=== PATIENT | female | born 1970 | race Caucasian/White ===

== ENCOUNTER → 2016-11-20 | Outpatient (CLI) | payer BC ==
[~2016-11-20] MED LIST: ATORVASTATIN CA20 M1 PO; BACTROBAN OINT22 GM PO; LISINOPRIL10 M1 PO; MOTRIN800 MG PO; XARE15TA PO; XARE20MG PO
== END | disposition home or self-care (01) ==
LOC: RESCLI 02:02
DX: Z12.31 Encounter for screening mammogram for malignant neoplasm of breast (principal); I10 Essential (primary) hypertension; E78.2 Mixed hyperlipidemia; Z76.89 Persons encountering health services in other specified circumstances

== ENCOUNTER → 2017-07-24 | Outpatient (CLI) | payer BC | END | disposition home or self-care (01) | LOC: LAB 13:11 → RESCLI 13:11 | DX: N91.2 Amenorrhea, unspecified (principal) ==

== ENCOUNTER 2018-12-09 19:38 | Emergency (ER) | payer BC ==
[~2018-12-09] VITALS: Wt 77.1 kg
[2018-12-09] MEDS ORDERED: CYCLOBENZAPRINE10 MG PO (22:19)
[2018-12-09] MEDS ORDERED: MEDROL DOSEPAK4 MG PO (22:19)
== END 2018-12-09 22:45 | disposition home or self-care (01) ==
LOC: ED 19:38
DX: M51.37 Other intervertebral disc degeneration, lumbosacral region (principal); Z79.899 Other long term (current) drug therapy; X58.XXXA Exposure to other specified factors, initial encounter; Y93.89 Activity, other specified; Y92.89 Other specified places as the place of occurrence of the external cause; Y99.8 Other external cause status

== ENCOUNTER 2019-02-02 02:23 | Emergency (ER) | payer BC ==
[~2019-02-02] VITALS: Ht 162.5 cm; Wt 77.1 kg
[~2019-02-02 02:23] MED LIST changes: +CYCLOBENZAPRINE10 MG PO; +MEDROL DOSEPAK4 MG PO
[2019-02-02 04:00] LABS: BASO # 0.1 10*3/uL (0.0-0.1); BASO % 0.6 % (0.0-1.0); EOS # 0.1 10*3/uL (0.0-0.4); EOS % 1.5 % (1.0-4.0); HEMOGLOBIN 13.1 g/dl (12.0-16.0); LYMPH # 2.4 10*3/uL (1.3-4.4); LYMPH % 26.9 % (27.0-41.0); MEAN CELL VOLUME 95.4 fl (81.0-99.0); MEAN CORPUSCULAR HGB CONC 33.6 g/dl (33.0-37.0); MEAN PLATELET VOLUME 9.6 fl (9.6-12.3); MONO # 0.7 10*3/uL (0.1-1.0); MONO % 7.8 % (3.0-9.0); NEUT # 5.7 10*3/uL (2.3-7.9); NEUT % 62.8 % (47.0-73.0); PLATELET COUNT AUTOMATED 328 10*3/uL (130-400); RED BLOOD COUNT 4.09 10*6/uL (4.10-5.10); RED CELL DISTRI WIDTH 12.5 % (0-14.5); WHITE BLOOD COUNT 9.1 10*3/uL (4.8-10.8)
[2019-02-02 04:12] LABS: INTERNATIONAL NORM RATIO 0.9 (2.0-3.5)
[2019-02-02 04:18] LABS: ALBUMIN 3.7 gm/dl (3.1-4.5); ALKALINE PHOSPHATASE 51 U/L (45-117); BUN 18 mg/dl (7-24); CHLORIDE 104 mmol/L (98-107); CREATININE 0.86 mg/dL (0.55-1.02); POTASSIUM 3.8 mmol/L (3.5-5.1); SGOT/AST 18 IU/L (3-35); SGPT/ALT 24 U/L (12-78); SODIUM 137 mmol/L (136-145); TOTAL PROTEIN 7.5 gm/dL (6.4-8.2)
[2019-02-02 04:20] LABS: TROPONIN I < 0.015 ng/ml (<0.045)
[2019-02-02] MEDS ORDERED: PROTONIX40 MG PO (05:47)
== END 2019-02-02 06:16 | disposition home or self-care (01) ==
LOC: ED 02:23
PROVIDERS: Emergency Medicine Emergency Medical Services
DX: T18.128A Food in esophagus causing other injury, initial encounter (principal); Z79.899 Other long term (current) drug therapy; Z90.49 Acquired absence of other specified parts of digestive tract; X58.XXXA Exposure to other specified factors, initial encounter; Y93.89 Activity, other specified; Y92.89 Other specified places as the place of occurrence of the external cause; Y99.8 Other external cause status

== ENCOUNTER 2020-10-28 21:53 | Inpatient (IN) | payer BC ==
[~2020-10-28] VITALS: Ht 165.1 cm; Wt 80.4 kg
[~2020-10-28 21:53] MED LIST changes: +PROTONIX40 MG PO
[2020-10-28 22:15] VITALS: BP 162/105
[2020-10-28 22:19] LABS: BASO # 0.1 10*3/uL (0.0-0.1); BASO % 0.6 % (0.0-1.0); EOS # 0.1 10*3/uL (0.0-0.4); EOS % 1.4 % (1.0-4.0); HEMATOCRIT 41.4 % (37.0-47.0); LYMPH # 2.8 10*3/uL (1.3-4.4); LYMPH % 35.2 % (27.0-41.0); MEAN CELL VOLUME 92.6 fl (81.0-99.0); MEAN CORPUSCULAR HGB 31.5 pg (27.0-31.0); MEAN CORPUSCULAR HGB CONC 34.1 g/dl (33.0-37.0); MEAN PLATELET VOLUME 11.1 fl (9.6-12.3); MONO # 0.7 10*3/uL (0.1-1.0); MONO % 8.6 % (3.0-9.0); NEUT # 4.3 10*3/uL (2.3-7.9); NEUT % 53.9 % (47.0-73.0); PLATELET COUNT AUTOMATED 240 10*3/uL (130-400); RED BLOOD COUNT 4.47 10*6/uL (4.10-5.10); RED CELL DISTRI WIDTH 12.3 % (0-14.5)
[2020-10-28 23:04] LABS: ALBUMIN 3.4 gm/dl (3.1-4.5); ALKALINE PHOSPHATASE 58 U/L (45-117); BUN 19 mg/dl (7-24); CHLORIDE 109 mmol/L (98-107); CREATININE 0.97 mg/dL (0.55-1.02); POTASSIUM 3.7 mmol/L (3.5-5.1); SGOT/AST 15 IU/L (3-35); SGPT/ALT 24 U/L (12-78); SODIUM 138 mmol/L (136-145); TOTAL PROTEIN 7.7 gm/dL (6.4-8.2)
[2020-10-28 23:05] LABS: TROPONIN I < 0.015 ng/ml (<0.045)
[2020-10-28 23:53] VITALS: BP 142/77
[2020-10-29 01:20] VITALS: BP 120/72
[2020-10-29 02:05] VITALS: BP 135/76
[2020-10-29] MEDS ORDERED: CELECOXIB200 M1 PO (02:19)
[2020-10-29] MEDS ORDERED: ASPIRIN CHEWABL81 MG PO (02:19)
[2020-10-29 08:00] VITALS: BP 132/72
[2020-10-29] MEDS ORDERED: MECLIZINE HCL25 M2 PO (11:04)
== END 2020-10-29 13:13 | disposition home or self-care (01) | DRG 206 ==
LOC: ED 21:53 → 5E 10-29 01:19 → EDHOLD 10-29 01:19 → 5E 10-29 01:50
PROVIDERS: Emergency Medicine; ADMIT Internal Medicine; ATTEND Internal Medicine
DX: M94.0 Chondrocostal junction syndrome [Tietze] (principal); E86.0 Dehydration; M51.37 Other intervertebral disc degeneration, lumbosacral region; E78.2 Mixed hyperlipidemia; R73.9 Hyperglycemia, unspecified; I10 Essential (primary) hypertension; R07.89 Other chest pain; R11.0 Nausea; E87.8 Other disorders of electrolyte and fluid balance, not elsewhere classified; E78.00 Pure hypercholesterolemia, unspecified; Z86.718 Personal history of other venous thrombosis and embolism; Z90.49 Acquired absence of other specified parts of digestive tract; Z83.3 Family history of diabetes mellitus; Z79.899 Other long term (current) drug therapy; Z79.82 Long term (current) use of aspirin; Z83.438 Family history of other disorder of lipoprotein metabolism and other lipidemia

== ENCOUNTER 2021-05-16 23:28 | Emergency (ER) | payer BC ==
[~2021-05-16] VITALS: Ht 165.1 cm; Wt 73.5 kg
[~2021-05-16 23:28] MED LIST changes: +ASPIRIN CHEWABL81 MG PO; +CELECOXIB200 M1 PO; +MECLIZINE HCL25 M2 PO
== END 2021-05-17 01:49 | disposition home or self-care (01) ==
LOC: ED 23:28
DX: F45.8 Other somatoform disorders (principal)

== ENCOUNTER 2021-07-10 15:21 | Emergency (ER) | payer BC ==
[2021-07-10 16:59] LABS: BILIRUBIN Negative (Negative); BLOOD 2+ (Negative); CLARITY Clear (Clear); COLOR Yellow (Yellow); GLUCOSE Negative (Negative); KETONE Negative (Negative); LEUKO ESTERASE Negative (Negative); NITRITE Negative (Negative); SPECIFIC GRAVITY 1.015 (1.001-1.030); UROBILINOGEN 0.2 E.U./dl (0.0-1.0)
[2021-07-10 17:17] LABS: BACTERIA 1+; MUCOUS 1+; WBC 0-2 wbc/hpf (0-5)
[2021-07-10] MEDS ORDERED: NAPROXEN250 MG PO (18:21)
[2021-07-10] MEDS ORDERED: CYCLOBENZAPRINE10 MG PO (18:21)
== END 2021-07-10 18:30 | disposition home or self-care (01) ==
LOC: ED 15:21
PROVIDERS: Nurse Practitioner Family
DX: S30.811A Abrasion of abdominal wall, initial encounter (principal); S09.90XA Unspecified injury of head, initial encounter; Z79.899 Other long term (current) drug therapy; Z79.82 Long term (current) use of aspirin; Z90.49 Acquired absence of other specified parts of digestive tract; V86.69XA Passenger of other special all-terrain or other off-road motor vehicle injured in nontraffic accident, initial encounter; Y93.89 Activity, other specified; Y92.89 Other specified places as the place of occurrence of the external cause; Y99.8 Other external cause status

== ENCOUNTER 2021-09-06 01:18 | Observation (INO) | payer BC ==
[~2021-09-06] VITALS: Ht 162.5 cm; Wt 80.3 kg
[2021-09-06] VITALS (7 sets, daily range): BP systolic 102–166; BP diastolic 47–117
[~2021-09-06 01:18] MED LIST changes: +NAPROXEN250 MG PO
[2021-09-06 01:47] LABS: BASO % 0.4 % (0.0-1.0); EOS # 0.1 10*3/uL (0.0-0.4); EOS % 1.8 % (1.0-4.0); LYMPH # 3.3 10*3/uL (1.3-4.4); LYMPH % 44.9 % (27.0-41.0); MEAN CORPUSCULAR HGB 32.2 pg (27.0-31.0); MEAN PLATELET VOLUME 9.4 fl (9.6-12.3); MONO # 0.6 10*3/uL (0.1-1.0); MONO % 8.3 % (3.0-9.0); NEUT # 3.3 10*3/uL (2.3-7.9); NEUT % 44.3 % (47.0-73.0); PLATELET COUNT AUTOMATED 246 10*3/uL (130-400); RED BLOOD COUNT 4.35 10*6/uL (4.10-5.10); RED CELL DISTRI WIDTH 11.6 % (0-14.5); WHITE BLOOD COUNT 7.4 10*3/uL (4.8-10.8)
[2021-09-06 01:59] LABS: ACT PARTIAL THROMBO TIME 24.6 SECONDS (20.0-32.1)
[2021-09-06 02:03] LABS: ALKALINE PHOSPHATASE 51 U/L (45-117); BUN 15 mg/dl (7-24); CHLORIDE 107 mmol/L (98-107); CREATININE 0.82 mg/dL (0.55-1.02); POTASSIUM 3.7 mmol/L (3.5-5.1); SGOT/AST 25 IU/L (3-35); SGPT/ALT 35 U/L (12-78); SODIUM 139 mmol/L (136-145); TOTAL PROTEIN 7.4 gm/dL (6.4-8.2)
[2021-09-06 03:42] LABS: BASO % 0.3 % (0.0-1.0); EOS % 0.6 % (1.0-4.0); HEMATOCRIT 38.7 % (37.0-47.0); LYMPH # 1.6 10*3/uL (1.3-4.4); LYMPH % 22.2 % (27.0-41.0); MEAN CELL VOLUME 92.1 fl (81.0-99.0); MEAN CORPUSCULAR HGB 31.9 pg (27.0-31.0); MEAN CORPUSCULAR HGB CONC 34.6 g/dl (33.0-37.0); MEAN PLATELET VOLUME 9.6 fl (9.6-12.3); MONO # 0.5 10*3/uL (0.1-1.0); MONO % 6.5 % (3.0-9.0); NEUT # 4.9 10*3/uL (2.3-7.9); NEUT % 70.1 % (47.0-73.0); PLATELET COUNT AUTOMATED 228 10*3/uL (130-400); RED CELL DISTRI WIDTH 11.6 % (0-14.5)
[2021-09-06 03:58] LABS: ALKALINE PHOSPHATASE 49 U/L (45-117); BUN 16 mg/dl (7-24); CHLORIDE 109 mmol/L (98-107); CHOLESTEROL 218 mg/dL (<200); CREATININE 0.79 mg/dL (0.55-1.02); POTASSIUM 4.2 mmol/L (3.5-5.1); SGOT/AST 22 IU/L (3-35); SGPT/ALT 33 U/L (12-78); SODIUM 138 mmol/L (136-145); TOTAL PROTEIN 7.5 gm/dL (6.4-8.2); TRIGLYCERIDES 404 mg/dl (<150)
[2021-09-06 04:03] LABS: ACT PARTIAL THROMBO TIME 25.5 SECONDS (20.0-32.1)
[2021-09-06] MEDS ORDERED: LISINOPRIL10 M1 PO (17:05)
[2021-09-06] MEDS ORDERED: VITAMIN D3125 MC1 PO (17:05)
[2021-09-06] MEDS ORDERED: ATORVASTATIN CA40 M1 PO (17:05)
[2021-09-06] MEDS ORDERED: LOPRESSOR25 MG PO (17:05)
== END 2021-09-06 17:29 | disposition home or self-care (01) ==
LOC: ED 01:18 → EDHOLD 02:50 → 4E 02:50
PROVIDERS: Emergency Medicine; Internal Medicine; ADMIT Internal Medicine; ATTEND Internal Medicine
DX: G45.9 Transient cerebral ischemic attack, unspecified (principal); R11.0 Nausea; R07.89 Other chest pain; R29.898 Other symptoms and signs involving the musculoskeletal system; R00.0 Tachycardia, unspecified; I10 Essential (primary) hypertension; E87.8 Other disorders of electrolyte and fluid balance, not elsewhere classified; E78.1 Pure hyperglyceridemia; E78.2 Mixed hyperlipidemia; R42 Dizziness and giddiness; R73.9 Hyperglycemia, unspecified; Z78.9 Other specified health status; Z79.899 Other long term (current) drug therapy; Z79.82 Long term (current) use of aspirin

== ENCOUNTER 2021-12-22 01:43 | Emergency (ER) | payer BC ==
[~2021-12-22] VITALS: Ht 162.5 cm; Wt 72.6 kg
[~2021-12-22 01:43] MED LIST changes: +ATORVASTATIN CA40 M1 PO; +LOPRESSOR25 MG PO; +VITAMIN D3125 MC1 PO
[2021-12-22 03:28] LABS: BASO % 0.5 % (0.0-1.0); EOS # 0.1 10*3/uL (0.0-0.4); EOS % 1.1 % (1.0-4.0); LYMPH # 1.8 10*3/uL (1.3-4.4); LYMPH % 22.9 % (27.0-41.0); MEAN CELL VOLUME 91.1 fl (81.0-99.0); MEAN CORPUSCULAR HGB CONC 35.1 g/dl (33.0-37.0); MONO # 0.5 10*3/uL (0.1-1.0); MONO % 6.2 % (3.0-9.0); NEUT # 5.4 10*3/uL (2.3-7.9); NEUT % 68.9 % (47.0-73.0); PLATELET COUNT AUTOMATED 257 10*3/uL (130-400); RED BLOOD COUNT 4.06 10*6/uL (4.10-5.10); RED CELL DISTRI WIDTH 12.6 % (0-14.5); WHITE BLOOD COUNT 7.9 10*3/uL (4.8-10.8)
[2021-12-22 03:55] LABS: ALKALINE PHOSPHATASE 53 U/L (45-117); BUN 15 mg/dl (7-24); CHLORIDE 107 mmol/L (98-107); CREATININE 0.77 mg/dL (0.55-1.02); POTASSIUM 4.5 mmol/L (3.5-5.1); SGOT/AST 50 IU/L (3-35); SGPT/ALT 42 U/L (12-78); SODIUM 134 mmol/L (136-145); TOTAL PROTEIN 7.8 gm/dL (6.4-8.2)
[2021-12-22 04:10] LABS: BILIRUBIN Negative (Negative); BLOOD 2+ (Negative); CLARITY Clear (Clear); COLOR Yellow (Yellow); GLUCOSE Negative (Negative); KETONE Negative (Negative); LEUKO ESTERASE Negative (Negative); NITRITE Negative (Negative); UROBILINOGEN 0.2 E.U./dl (0.0-1.0)
[2021-12-22 04:16] LABS: EPITHELIAL CELLS 16-20; WBC 0-2 wbc/hpf (0-5); YEAST TRACE
[2021-12-22] MEDS ORDERED: PROMETHAZINE12.5 M5 PO (05:33)
== END 2021-12-22 05:37 | disposition home or self-care (01) ==
LOC: ED 01:43
PROVIDERS: Emergency Medicine
DX: R11.10 Vomiting, unspecified (principal); K65.4 Sclerosing mesenteritis; I10 Essential (primary) hypertension; E78.2 Mixed hyperlipidemia; Z79.82 Long term (current) use of aspirin; Z86.73 Personal history of transient ischemic attack (TIA), and cerebral infarction without residual deficits; Z90.49 Acquired absence of other specified parts of digestive tract

== ENCOUNTER 2022-03-09 15:03 | Emergency (ER) | payer BC ==
[~2022-03-09] VITALS: Ht 162.5 cm; Wt 74.8 kg
[~2022-03-09 15:03] MED LIST changes: +PROMETHAZINE12.5 M5 PO
[2022-03-09] MEDS ORDERED: PERCOCET 5-3251 EACH PO (16:26)
[2022-03-09] MEDS ORDERED: AMOX-CLAV 875-1 EACH PO (16:26)
[2022-03-09] MEDS ORDERED: ANTIBIOTIC28.4 GM T (16:26)
== END 2022-03-09 16:54 | disposition home or self-care (01) ==
LOC: ED 15:03
DX: S61.452A Open bite of left hand, initial encounter (principal); S61.552A Open bite of left wrist, initial encounter; Z79.82 Long term (current) use of aspirin; Z90.49 Acquired absence of other specified parts of digestive tract; W54.0XXA Bitten by dog, initial encounter; Y93.89 Activity, other specified; Y92.89 Other specified places as the place of occurrence of the external cause; Y99.8 Other external cause status

== ENCOUNTER 2022-03-11 19:54 | Emergency (ER) | payer BC ==
[~2022-03-11] VITALS: Ht 162.6 cm; Wt 74.4 kg
[~2022-03-11 19:54] MED LIST changes: +AMOX-CLAV 875-1 EACH PO; +ANTIBIOTIC28.4 GM T; +PERCOCET 5-3251 EACH PO
[2022-03-11 20:44] LABS: BASO % 0.4 % (0.0-1.0); EOS # 0.1 10*3/uL (0.0-0.4); EOS % 1.4 % (1.0-4.0); HEMATOCRIT 40.8 % (37.0-47.0); LYMPH # 2.4 10*3/uL (1.3-4.4); LYMPH % 30.6 % (27.0-41.0); MEAN CELL VOLUME 94.4 fl (81.0-99.0); MEAN CORPUSCULAR HGB 31.5 pg (27.0-31.0); MEAN CORPUSCULAR HGB CONC 33.3 g/dl (33.0-37.0); MEAN PLATELET VOLUME 9.7 fl (9.6-12.3); MONO # 0.7 10*3/uL (0.1-1.0); MONO % 9.5 % (3.0-9.0); NEUT # 4.4 10*3/uL (2.3-7.9); NEUT % 57.7 % (47.0-73.0); PLATELET COUNT AUTOMATED 228 10*3/uL (130-400); RED BLOOD COUNT 4.32 10*6/uL (4.10-5.10); RED CELL DISTRI WIDTH 11.9 % (0-14.5); WHITE BLOOD COUNT 7.7 10*3/uL (4.8-10.8)
[2022-03-11 21:12] LABS: BUN 15 mg/dl (7-24); CHLORIDE 107 mmol/L (98-107); CREATININE 0.89 mg/dL (0.55-1.02); LIPASE 152 U/L (73-393); POTASSIUM 3.9 mmol/L (3.5-5.1); SGOT/AST 28 IU/L (3-35); SODIUM 139 mmol/L (136-145); TOTAL PROTEIN 7.6 gm/dL (6.4-8.2)
[2022-03-11 21:21] LABS: ALKALINE PHOSPHATASE 58 U/L (45-117); SGPT/ALT 53 U/L (12-78)
[2022-03-11] MEDS ORDERED: ONDANSETRON4 MG SL (22:05)
== END 2022-03-11 22:45 | disposition home or self-care (01) ==
LOC: ED 19:54
PROVIDERS: Physician Assistant
DX: R11.0 Nausea (principal); Z20.822 Contact with and (suspected) exposure to COVID-19; R10.10 Upper abdominal pain, unspecified; R05.9 Cough, unspecified; Z79.82 Long term (current) use of aspirin; Z04.9 Encounter for examination and observation for unspecified reason

== ENCOUNTER → 2023-01-30 | Outpatient (CLI) | payer BC ==
[~2023-01-30] MED LIST changes: +ONDANSETRON4 MG SL
== END | disposition home or self-care (01) ==
LOC: MRI 08:56
PROVIDERS: ATTEND Nurse Practitioner
DX: M79.671 Pain in right foot (principal)

== ENCOUNTER 2023-10-10 19:05 | Emergency (ER) | payer BC ==
[~2023-10-10] VITALS: Ht 160 cm; Wt 72.6 kg
[2023-10-10] MEDS ORDERED: Pantoprazole Sodium 40 MG VIAL IV ONE (20:00)
[2023-10-10] MEDS ORDERED: MG-AL HYDROXIDE/SIMETICONE 30 ML UDC PO STA (20:31)
[2023-10-10] MEDS ORDERED: Dicyclomine Hydrochloride 20 MG/10 ML OSYR PO STA (20:31)
[2023-10-10] MEDS ORDERED: Lidocaine Hydrochloride 15 ML UDC PO STA (20:31)
== END 2023-10-10 21:20 | disposition home or self-care (01) ==
LOC: ED 19:05
DX: R09.89 Other specified symptoms and signs involving the circulatory and respiratory systems (principal); R10.13 Epigastric pain; R11.10 Vomiting, unspecified; E78.2 Mixed hyperlipidemia; I10 Essential (primary) hypertension; Z86.73 Personal history of transient ischemic attack (TIA), and cerebral infarction without residual deficits; K21.9 Gastro-esophageal reflux disease without esophagitis; Z79.899 Other long term (current) drug therapy; Z79.2 Long term (current) use of antibiotics; Z79.82 Long term (current) use of aspirin; Z86.718 Personal history of other venous thrombosis and embolism; Z90.49 Acquired absence of other specified parts of digestive tract

== ENCOUNTER 2024-06-14 21:26 | Emergency (ER) | payer BC ==
[~2024-06-14] VITALS: Ht 160 cm; Wt 74.8 kg
[2024-06-14] MEDS ORDERED: methylPREDNISolone sod succ 125 MG VIAL IM ONE (22:00)
[2024-06-14] MEDS ORDERED: diphenhydrAMINE hydrochloride 25 MG CAP PO ONE (22:00)
[2024-06-14] MEDS ORDERED: Pantoprazole Sodium 20 MG TAB PO ONE (22:00)
[2024-06-14] MEDS ORDERED: PREDNISONE20 M1 PO (22:02)
[2024-06-14] MEDS ORDERED: SILVER SULFADIAZINE 25 GM TUBE T ONE (22:05)
== END 2024-06-14 22:45 | disposition home or self-care (01) ==
LOC: ED 21:26
DX: L24.5 Irritant contact dermatitis due to other chemical products (principal); Z79.899 Other long term (current) drug therapy; Z79.82 Long term (current) use of aspirin; Z90.49 Acquired absence of other specified parts of digestive tract